=== PATIENT | male | born 1995 | race African-American/Black ===

== ENCOUNTER 2018-09-18 15:47 | Emergency (ER) | payer OTHER ==
[~2018-09-18] VITALS: Ht 175.3 cm; Wt 77.3 kg
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
[2018-09-18 16:56] VITALS: BP 121/74
[2018-09-18] MEDS ORDERED: ROBA500T PO (17:02)
== END 2018-09-18 17:18 | disposition home or self-care (01) ==
LOC: M ED 15:47
DX: S13.4XXA Sprain of ligaments of cervical spine, initial encounter (principal); V49.49XA Driver injured in collision with other motor vehicles in traffic accident, initial encounter; Y92.410 Unspecified street and highway as the place of occurrence of the external cause

== ENCOUNTER 2018-11-29 01:59 | Emergency (ER) | payer OTHER ==
[~2018-11-29] VITALS: Ht 177.8 cm; Wt 77.3 kg
[~2018-11-29 01:59] MED LIST: ROBA500T PO
[2018-11-29] MEDS ORDERED: BIKT1TAB PO (02:09)
[2018-11-29 03:51] VITALS: BP 127/66
== END 2018-11-29 03:53 | disposition home or self-care (01) ==
LOC: M ED 01:59
DX: F10.129 Alcohol abuse with intoxication, unspecified (principal); B20 Human immunodeficiency virus [HIV] disease; Z79.899 Other long term (current) drug therapy